=== PATIENT | male | born 1945 | race Caucasian/White ===

== ENCOUNTER → 2024-01-08 09:52 | Outpatient (REF) | payer MEDICARE, SELFPAY | LOC: HWRCS 09:52 | PROVIDERS: ATTENDING PHYSICIAN Internal Medicine Critical Care Medicine; FAMILY PHYSICIAN Emergency Medicine | DX: I27.20 Pulmonary hypertension, unspecified (principal); R09.89 Other specified symptoms and signs involving the circulatory and respiratory systems | CPT/HCPCS: 93306 ==

== ENCOUNTER → 2025-07-16 10:01 | Outpatient (REF) | payer MEDICARE, SELFPAY | LOC: HWRCS 10:01 | PROVIDERS: ATTENDING PHYSICIAN Internal Medicine Critical Care Medicine; FAMILY PHYSICIAN Emergency Medicine | DX: Z86.711 Personal history of pulmonary embolism (principal) | CPT/HCPCS: 93306 ==